=== PATIENT | female | born 1995 | race Caucasian/White ===

== ENCOUNTER 2019-03-10 00:19 | Inpatient (IN) | payer MEDICAID, SELFPAY ==
--- NOTE | 2019-03-10 00:32 | NUR.NOTE ---
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 #20 RAC. Pt taken directly to L&D via WC.
--- NOTE | 2019-03-10 01:01 | W.PM.HP.N ---
Date of service: 03/10/19 Time of Service: 01:01 Assessment and Plan Assessment and plan (1) (normal spontaneous vaginal delivery): Status: Acute Assessment and plan: The patient presented in active labor and delivered via uncomplicated delivery shortly after admission. Please refer to delivery note for details. History of Present Illness History of Present Illness Chief Complaint: Active Labor Narrative: 23 year old @ 39.1 weeks presents today in active labor with initial cervical exam of 8 cm in dilatation. She routinely receives her care in [place] but presented here as it was the closest facility. Her course has been uncomplicated. She is generally healthy. [facility] Social History Smoking/Tobacco Use Status: Former Tobacco Use Drug use: Never Do you feel safe at home: Yes Do you feel safe in your relationship?: Yes Meds Home Medications and Allergies Home Medications Medication Instructions Recorded Confirmed Type PNV cmb#95-ferrous fumarate-FA 1 tab PO DAILY 08/18/14 08/18/14 History Allergies Allergy/AdvReac Type Severity Reaction Status Date / Time No Known Allergies Allergy Unverified 08/18/14 13:31
--- NOTE | 2019-03-10 01:16 | ED.GENADUL_ITS ---
Discharge Plan Disposition Patient Disposition: [facility] INPATIENT Condition: Serious Discharge Details Chief Complaint: WAREHOUSE GUARD Clinical Impression: Active labor at term Admit Date/Time: 03/10/19 00:39 Admit Provider: Samir Little Attending Provider: Samir Little Primary Care Provider: Jesse Rock ED Provider: Rohan Palafox Medical Decision Making This is a pleasant 23-year-old female who is a G4, P3 with a history of a molar in the past, who is 39 weeks . She presents after having her water break 1 hour ago, contractions are 2 minutes apart. Exam demonstrates dilatation to roughly 8 cm. Medical screening exam was performed and demonstrates no acute life-threatening abnormality. We did contact OB and they request that the patient be brought up to OB immediately for delivery. Patient will be brought by staff on wheelchair for imminent delivery. HPI General Date/Time Provider Initiated Documentation: 03/10/19 00:19 . HPI Narrative: This is a pleasant 23-year-old female with no significant past medical history who is a G4, P3 currently 39 weeks who is normally seen at [facility] but lives in [place]. She presents today for contractions. She states that 1 hour ago water broke currently her contractions are every 2 minutes apart. She states that she is O-. She denies any other complaints at this time. Related Data Home Medications Medication Instructions Recorded Confirmed PNV cmb#95-ferrous fumarate-FA 1 tab PO DAILY 08/18/14 08/18/14 Allergies Allergy/AdvReac Type Severity Reaction Status Date / Time No Known Allergies Allergy Unverified 08/18/14 13:31 General Stated Complaint: WAREHOUSE GUARD JORGE: 2 Review of Systems All systems reviewed & are unremarkable except as noted in HPI and below PFSH Social History Smoking/Tobacco Use Status: Former Tobacco Use Drug use: Never Do you feel safe at home: Yes Do you feel safe in your relationship?: Yes Exam Narrative Exam Narrative: 1.Const: Well-nourished, Well-developed, appearing stated age 2.Eyes: PERRL, no conjunctival injection, and symmetrical lids. 3.ENT: Atraumatic external nose and ears. Moist MM. Neck: Symmetric, trachea midline, No thyromegaly. 4.CVS: +S1/S2, No murmurs or gallops. Peripheral pulses 2+ and equal in all extremities. Brisk capillary refill in all extremities. 5.RESP: Unlabored respiratory effort. Clear to auscultation bilaterally. No wheezes rales or rhonchi 6.GI: Soft, appropriately gravid abdomen. Vaginal exam demonstrates patient actively yoli, dilated to roughly 8 cm. Not visibly . No vaginal bleeding. 7.MSK: Normocephalic/Atraumatic, Extremities w/o deformity or ttp No cyanosis or clubbing, Normal movement of all extremities 8.Skin: Warm, Dry. No rashes or lesions. 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 Sensation grossly intact, no focal neurologic deficits. 10.Psych: (AAO) x3. Appropriate mood and affect Course Vital Signs Vital signs: Respiratory Effort 03/10/19 00:23
[2019-03-10] MEDS: Ibuprofen 600 MG TAB PO ×4 (01:45→21:15)
[2019-03-10] MEDS: Acetaminophen 325 MG TAB 650 MG PO ×2 (05:20→09:46)
[2019-03-10 08:07] LABS: Abs Immature Grans 0.06 k/cumm (0.0-0.09); Absolute Basophil Count 0.01 k/cumm (0.0-0.2); Absolute Lymphocyte Count 1.63 k/cumm (1.2-3.4); Absolute Neutrophil Count 12.52 k/cumm (1.2-6.7); Basophils % 0.1; HCT 34.7 % (36.0-46.0); HGB 11.6 g/dL (12.0-15.5); Immature Grans % 0.4; Mean Corp. HGB Concentration 33.4 g/dL (32.0-36.0); Mean Corpuscular Hemoglobin 29.6 pg (27.0-33.0); Mean Corpuscular Volume 88.5 fL (80-95); Mean Platelet Volume 10.5 fL (8.0-11.0); Neutrophils % 84.5; Platelet Count 277 x1000/uL (130-400); RBC 3.92 m/cumm (4.00-5.20); RBC Distribution Width 14.2 % (11.7-14.6); White Blood Cell Count 14.82 k/cumm (4.4-10.8)
[2019-03-10 08:09] LABS: Absolute Monocyte Count 0.59 k/cumm (0.11-0.7)
--- NOTE | 2019-03-10 09:36 | W.PM.PROGNOT ---
Date of Service Date of service: 03/10/19 Time of Service: 09:36 Assessment and Plan Assessment and plan (1) (normal spontaneous vaginal delivery): Status: Acute Assessment and plan: Continue routine care. Rhogam today. Subjective Subjective Interval history since last seen: Doing well. No problems. No pain Minimal lochia. Objective Objective Clinical Data: Abnormal lab results 03/10/19 Range/Units 06:30 WBC 14.82 H (4.4-10.8) k/cumm RBC 3.92 L (4.00-5.20) m/cumm Hgb 11.6 L (12.0-15.5) g/dL Hct 34.7 L (36.0-46.0) % Absolute Neutrophils 12.52 H (1.2-6.7) k/cumm Vital Signs Respiratory Effort 03/10/19 00:23 Pain Level 4 03/10/19 07:36 Laboratory Results WBC 14.82 k/cumm (4.4-10.8) H 03/10/19 06:30 RBC 3.92 m/cumm (4.00-5.20) L 03/10/19 06:30 Hgb 11.6 g/dL (12.0-15.5) L 03/10/19 06:30 Hct 34.7 % (36.0-46.0) L 03/10/19 06:30 MCV 88.5 fL (80-95) 03/10/19 06:30 MCH 29.6 pg (27.0-33.0) 03/10/19 06:30 MCHC 33.4 g/dL (32.0-36.0) 03/10/19 06:30 RDW 14.2 % (11.7-14.6) 03/10/19 06:30 Plt Count 277 x1000/uL (130-400) 03/10/19 06:30 MPV 10.5 fL (8.0-11.0) 03/10/19 06:30 Immature Gran % 0.4 03/10/19 06:30 Neutrophils % 84.5 03/10/19 06:30 Lymphocytes % 11.0 03/10/19 06:30 Monocytes % 4.0 03/10/19 06:30 Eosinophils % 0.0 03/10/19 06:30 Basophils % 0.1 03/10/19 06:30 Absolute Neutrophils 12.52 k/cumm (1.2-6.7) H 03/10/19 06:30 Absolute Lymphocytes 1.63 k/cumm (1.2-3.4) 03/10/19 06:30 Absolute Monocytes 0.59 k/cumm (0.11-0.7) 03/10/19 06:30 Absolute Eosinophils 0.00 k/cumm (0.0-0.7) 03/10/19 06:30 Absolute Basophils 0.01 k/cumm (0.0-0.2) 03/10/19 06:30 Patient ABO/Rh O Negative 03/10/19 06:40 Antibody Screen Negative 03/10/19 06:40
[2019-03-10] MEDS: Calcium Carbonate *TUMS* 500 MG CHEW PO (13:23)
[2019-03-11] MEDS: Ibuprofen 600 MG TAB PO (06:10)
== END 2019-03-11 12:15 | disposition home or self-care (01) | DRG 807 ==
LOC: ER 00:27 → OBS 00:43
PROVIDERS: Admitting Provider Obstetrics & Gynecology; Emergency Provider Student in an Organized Health Care Education/Training Program; PCP Nurse Practitioner Family; Visit Provider Obstetrics & Gynecology
DX: O62.3 Precipitate labor (principal); Z37.0 Single live birth; Z3A.39 39 weeks gestation of pregnancy; O70.0 First degree perineal laceration during delivery; Z29.13 Encounter for prophylactic Rho(D) immune globulin
CPT/HCPCS: 36415; 85461; 86850; 86900; 86901; 90384; 99223; 99233; 99285; 85025; 99284; J2790